=== PATIENT | male | born 1965 | race African-American/Black ===

== ENCOUNTER 2020-03-30 10:13 | Emergency (ER) | payer MEDICAID ==
[~2020-03-30] VITALS: Ht 172.7 cm; Wt 75.0 kg
[2020-03-30] MEDS ORDERED: IBUPROFEN 800MG TABLET PO ONE (10:45)
[2020-03-30] MEDS ORDERED: HYDROCODONE/ACETAMINOPHEN 5/325MG TABLET PO ONE (10:45)
[2020-03-30] MEDS ORDERED: ONDANSETRON 4MG ODT PO ONE (10:45)
[2020-03-30 12:56] VITALS: BP 128/84
== END 2020-03-30 12:56 | disposition home or self-care (01) ==
LOC: ER 10:13
DX: S89.82XA Other specified injuries of left lower leg, initial encounter (principal); Y93.89 Activity, other specified; V48.4XXA Person boarding or alighting a car injured in noncollision transport accident, initial encounter; Y92.481 Parking lot as the place of occurrence of the external cause; R03.0 Elevated blood-pressure reading, without diagnosis of hypertension
CPT/HCPCS: 29505; 73552; 73562; 99284; Q0162

== ENCOUNTER 2021-12-27 15:29 | Emergency (ER) | payer MEDICAID ==
[~2021-12-27] VITALS: Ht 180.3 cm; Wt 89.0 kg
[2021-12-27 15:42] VITALS: BP 135/84
[2021-12-27] MEDS ORDERED: TETRACAINE 0.5% OPHTH DROPS 4ML BOTHEYE ONE (15:45)
[2021-12-27] MEDS ORDERED: FLUORESCEIN SODIUM 1MG/STRIP BOTHEYE ONE ×2 (15:45→16:15)
[2021-12-27] MEDS ORDERED: T3 PO (17:37)
[2021-12-27] MEDS ORDERED: POLY10DR EACHEYE (17:37)
== END 2021-12-27 17:58 | disposition home or self-care (01) ==
LOC: ER 15:29
DX: H10.023 Other mucopurulent conjunctivitis, bilateral (principal)
CPT/HCPCS: 99283

== ENCOUNTER 2022-03-02 11:26 | Emergency (ER) | payer MEDICAID ==
[~2022-03-02] VITALS: Ht 180.3 cm; Wt 85.0 kg
[~2022-03-02 11:26] MED LIST: POLY10DR EACHEYE; T3 PO
[2022-03-02] MEDS ORDERED: TETRACAINE 0.5% OPHTH DROPS 4ML LEFTEYE ONE (12:45)
[2022-03-02] MEDS ORDERED: FLUORESCEIN SODIUM 1MG/STRIP LEFTEYE ONE (12:45)
[2022-03-02] MEDS ORDERED: ERYT1OIN6 LEFTEYE (14:03)
[2022-03-02 14:17] VITALS: BP 135/72
== END 2022-03-02 14:19 | disposition home or self-care (01) ==
LOC: ER 12:33
DX: H00.014 Hordeolum externum left upper eyelid (principal)
CPT/HCPCS: 99283